=== PATIENT | male | born 1990 | race African-American/Black ===

== ENCOUNTER 2022-05-08 12:06 | Emergency (ER) | payer OTHER ==
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
--- NOTE | 2022-05-08 12:19 | EDPHYS ---
Physician Documentation [facility] Name: Bebo Morales Age: 31 yrs Sex: Male : 1990 Arrival Date: 05/08/2022 Time: 12:12 Bed Waiting Private MD: ED Physician Trent Sharpe HPI: 05/08 12:15 This 31 yrs old Black Male presents to ER via Ambulatory with complaints of Eye jh7 Swelling, Eye Pain. 12:15 The patient is experiencing pain, to the left eye, caused by an unknown mechanism. jh7 Onset: The symptoms/episode began/occurred 5 day(s) ago. Associated signs and symptoms: Pertinent negatives: fever, Visual changes, eye pain. Patient complains of redness and swelling to the left lower eyelid for the past 5 days. He denies any visual changes or drainage from the eye. States the area is tender to palpation.. Historical: - Allergies: 12:23 No Known Allergies; vg1 - Home Meds: 12:23 None [Active]; vg1 - PMHx: 12:23 None; vg1 - PSHx: 12:23 None; vg1 - Immunization history:: Client reports having NOT received the Covid vaccine. - Social history:: Smoking status: Patient denies any tobacco usage or history of. ROS: 12:15 Constitutional: Negative for fever, chills, and weight loss, ENT: Negative for injury, jh7 pain, and discharge, Cardiovascular: Negative for chest pain, palpitations, and edema, Respiratory: Negative for shortness of breath, cough, wheezing, and pleuritic chest pain, Skin: Negative for injury, rash, and discoloration, Neuro: Negative for headache, weakness, numbness, tingling, and seizure. 12:15 Eyes: Positive for redness, swelling, Negative for blurry vision, discharge, tearing, vision loss, visual disturbance. 12:15 All other systems are negative. Exam: 12:15 Constitutional: This is a well developed, well nourished patient who is awake, alert, jh7 and in no acute distress. Head/Face: Normocephalic, atraumatic. ENT: Nares patent. No nasal discharge, no septal abnormalities noted. Oropharynx with no redness, swelling, or masses, exudates, or evidence of obstruction, uvula midline. Mucous membranes moist. Cardiovascular: Regular rate and rhythm with a normal S1 and S2. No gallops, murmurs, or rubs. Normal PMI, no JVD. No pulse deficits. Respiratory: Lungs have equal breath sounds bilaterally, clear to auscultation and percussion. No rales, rhonchi or wheezes noted. No increased work of breathing, no retractions or nasal flaring. Skin: Warm, dry with normal turgor. Normal color with no rashes, no lesions, and no evidence of cellulitis. Neuro: Awake and alert, GCS 15, oriented to person, place, time, and situation. Normal gait. 12:15 Eyes: Extraocular movements: intact throughout, Conjunctiva: normal, Stye noted on the left lower lid. Vital Signs: 12:18 BP 118 / 65; Pulse 78; Resp 18; Temp 97.8(TE); Pulse Ox 99% on R/A; Weight 131.54 kg; vg1 Height 5 ft. 11 in. (180.34 cm); Pain 0/10; 12:18 Body Mass Index 40.45 (131.54 kg, 180.34 cm) vg1 MDM: 12:13 Patient medically screened. jh7 12:20 Differential diagnosis: Stye. Data reviewed: vital signs, nurses notes. I considered jh7 the following discharge prescriptions or medication management in the emergency department Prescribed erythromycin ointment. Counseling: I had a detailed discussion with the patient and/or guardian regarding: the historical points, exam findings, and any diagnostic results supporting the discharge/admit diagnosis, to return to the emergency department if symptoms worsen or persist or if there are any questions or concerns that arise at home. Special discussion: Advised warm compresses 15 to 20 minutes at a time 3-4 times a day. Informed the patient that this is likely what will help his stye the most, but prescribed erythromycin ointment as well.. Administered Medications: No medications were administered Disposition: 18:08 Co-signature as Attending Physician, Trent Sharpe MD. rn Disposition Summary: 05/08/22 12:19 Discharge Ordered Location: Home [facility] Problem: new jh7 Symptoms: are unchanged jh7 Condition: Stable jh7 Diagnosis - Hordeolum externum left lower eyelid jh7 Followup: 7 - With: Private Physician - When: 2 - 3 days - Reason: Recheck today's complaints Discharge Instructions: - Discharge Summary Sheet jh7 - Michael jh7 Forms: - Medication Reconciliation Form jh7 - Thank You Letter jh7 Prescriptions: - Erythromycin 5 mg/gram (0.5 %) Ophthalmic Ointment - apply 1 centimeter by OPHTHALMIC route 2-3 times daily for 7 days; 1 tube; [facility] Refills: 0, Product Selection Permitted Signatures: Trent Sharpe MD MD rn Brent, MARY Smith RN vg1 Margarita Serra FNP BENEFITS REPRESENTATIVE [facility] Corrections: (The following items were deleted from the chart) 12:23 12:23 Allergies: Aspirin; vg1 vg1
--- NOTE | 2022-05-08 12:25 | ER ---
Nurse's Notes [facility] Name: Bebo Morales Age: 31 yrs Sex: Male : 1990 Arrival Date: 05/08/2022 Time: 12:12 Bed Waiting Private MD: Diagnosis: Hordeolum externum left lower eyelid Presentation: 05/08 12:18 Chief complaint: Patient states: Left eye swelling/pain x 2 days; pt stated "i think vg1 its a stye or maybe its my contacts". Coronavirus screen: Vaccine status: Patient reports being unvaccinated. Client denies travel out of the [place] in the last 14 days. Ebola Screen: Patient negative for fever greater than or equal to 101.5 degrees Fahrenheit, and additional compatible Ebola Virus Disease symptoms. Mechanism of Injury: No Mechanism of Injury. The patient denies any loss of vision. Initial Sepsis Screen: Does the patient meet any 2 criteria? No. Patient's initial sepsis screen is negative. Does the patient have a suspected source of infection? No. Patient's initial sepsis screen is negative. Risk Assessment: Do you want to hurt yourself or someone else? Patient reports no desire to harm self or others. Onset of symptoms was May 06, 2022. 12:18 Method Of Arrival: Ambulatory vg1 12:18 Acuity: KD 4 vg1 Triage Assessment: 12:23 General: Appears in no apparent distress. comfortable, Behavior is calm, cooperative. vg1 Pain: Denies pain. EENT: Eyes Left eye swelling/redness. Historical: - Allergies: 12:23 No Known Allergies; vg1 - Home Meds: 12:23 None [Active]; vg1 - PMHx: 12:23 None; vg1 - PSHx: 12:23 None; vg1 - Immunization history:: Client reports having NOT received the Covid vaccine. - Social history:: Smoking status: Patient denies any tobacco usage or history of. Screenin:24 [facility] ED Fall Risk Assessment (Adult) History of falling in the last 3 months, vg1 including since admission No falls in past 3 months (0 pts) Confusion or Disorientation No (0 pts) Intoxicated or Sedated No (0 pts) Impaired Gait No (0 pts) Mobility Assist Device Used No (0 pt) Altered Elimination No (0 pt) Score/Fall Risk Level 0 - 2 = Low Risk Oriented to surroundings, Maintained a safe environment, Educated pt \\T\\ family on fall prevention, incl call for assistance when getting out of bed. Abuse screen: Denies threats or abuse. Nutritional screening: No deficits noted. Tuberculosis screening: No symptoms or risk factors identified. Vital Signs: 12:18 BP 118 / 65; Pulse 78; Resp 18; Temp 97.8(TE); Pulse Ox 99% on R/A; Weight 131.54 kg; vg1 Height 5 ft. 11 in. (180.34 cm); Pain 0/10; 12:18 Body Mass Index 40.45 (131.54 kg, 180.34 cm) vg1 ED Course: 12:12 Patient arrived in ED. as 12:13 [facility] Ser[facility] 7 12:13 Trent Sharpe MD is Attending Physician. 7 12:23 Triage completed. vg1 12:23 Arm band placed on. vg1 12:24 Patient has correct armband on for positive identification. vg1 12:24 No provider procedures requiring assistance completed. Patient did not have IV access vg1 during this emergency room visit. Administered Medications: No medications were administered Medication: 12:24 VIS not applicable for this client. vg1 Outcome: 12:19 Discharge ordered by . 7 12:24 Discharged to home ambulatory, with family. vg1 12:24 Condition: good 12:24 Discharge instructions given to patient, family, Instructed on discharge instructions, follow up and referral plans. medication usage, Demonstrated understanding of instructions, follow-up care, medications, Prescriptions given X 1. 12:25 Patient left the ED. vg1 Signatures: Savi Lynn Victoria, RN RN vg1 Margarita Serra FNP PERSONNEL PSYCHOLOGIST [facility] Corrections: (The following items were deleted from the chart) 12:23 12:23 Allergies: Aspirin; vg1 vg1
[2022-05-08 12:30] VITALS: BP 118/65; TEMP 97.8; O2SAT 99
== END 2022-05-08 12:25 | disposition home or self-care (01) ==
LOC: ER 12:06
DX: H00.015 Hordeolum externum left lower eyelid (principal)

== ENCOUNTER → 2023-04-13 | Emergency (ER) | payer OTHER ==
[~2023-04-13] MED LIST: NA CHLORIDE 0.9% 1,000 ML ONE; PROPRANOLOL HCL 40 MG TAB ONE
--- OUTSIDE RECORDS SUMMARY | 2023-04-13 14:00 | XMS REPORT | Continuity of Care Document ---
Author Name Unknown Address [address] [facility] [address] [place] [address] [facility] thconnect Address [address] [facility] [address] [place] [address] Care Team Providers Care Assembler Wet Wash Name Role Phone [email or web address] Attending Clinician Unavailable Margarita Lim Attending Clinician Moshe Loaiza CMA Attending Clinician Unavailabl Anuel Stearns Attending Clinician Unavailable Breanna Castaneda Attending Clinician Unavailable Susi Anton MD Attending Clinician Elicia Cadena Attending Clinician Unavailab Rosetta Quinn Attending Clinician Unavailable Ulises Valdez Attending Clinician Breanna Song Attending Clinician UnavailRosetta Machuca Attending Clinician Unavailable Mary Coppola Attending Clinician Unavailable Karl Berger Attending Clinician [phone] Fernanda Edouard Attending Clinician Unavailab Karl Bennett Attending Clinician Unavailable Margarita Lim Unavailable Susi Anton MD Unavailable Karl Rodriguez Unavailable Payers Payer Name Policy Type Policy Number Effective Date Expirati on Date [id number]00 Problems Condition Name Condition Details Condition Category Status Onset Date Resolution Date Last Treatment Date Treating Clinician Comments Source Immune to hepatitis B Condition Active 2 00:00: 00 2021-05-11 08:56:15 Margarita Martínez [facility] Low HDL cholestero l Condition Active 2 00:00: 00 2021-05-11 08:56:15 Margarita Martínez [facility] Acanthosis nigricans Condition Active 08-26 00:00: 00 2021-05-10 15:32:13 Susi Anton [facility] Prediabete s Condition Active 07-08 00:00: 00 2020-07-08 09:55:58 Margarita Martínez [facility] Vitamin D deficiency Condition Active 07-08 00:00: 00 2020-07-08 09:55:58 Margarita Martínez [facility] Seborrheic dermatitis of scalp Condition Active 07-07 00:00: 00 2020-07-07 15:07:49 Margarita Martínez [facility] Prurigo Condition Active 07-07 00:00: 00 2020-07-07 15:07:49 Margarita Martínez [facility] Exercise Counseling Condition Active 07-07 00:00: 00 2020-07-07 15:07:49 Margarita Martínez [facility] Dietary counseling and surveillan ce Condition Active 07-07 00:00: 00 2020-07-07 15:07:49 Margarita Martínez [facility] BMI 39.0-39.9 Condition Active 07-07 00:00: 00 2020-07-07 15:07:49 Margarita Martínez [facility] Obesity Condition Active 07-07 00:00: 00 2020-07-07 15:07:49 Margarita Martínez [facility] Screening for std Condition Active 07-02 00:00: 00 2019-07-04 09:40:02 Karl Berger [facility] History of Past Illness Condition Name Condition Details Condition Category Status Onset Date Resolution Date Last Treatment Date Treating Clinician Comments Source Penile discharge Condition Inactiv e 9-16 00:00: 00 2021-05-10 00:00:00 2021-05-10 15:32:48 Margarita Martínez [facility] High risk heterosexu al behavior Condition Inactiv e 07-02 00:00: 00 2021-05-10 00:00:00 2021-05-10 15:32:48 Margarita Martínez [facility] Penis lesion Condition Inactiv e 07-02 00:00: 00 2021-05-10 00:00:00 2021-05-10 15:32:48 Margarita Martínez [facility] Social History Social Habit Start Date Stop Date Quantity Comments Source if the patient is using/has used a vaping item, Current, Former, Never Used, Not asked 2022-07-31 12:23:49 2022-07-31 12:23:49 No [facility] drug use 2022-07-31 12:23:49 2022-07-31 12:23:49 Never [facility] alcohol use 2022-07-31 12:23:49 2022-07-31 12:23:49 Never [facility] sexual orientation 2022-07-31 12:23:49 2022-07-31 12:23:49 Heterosexual [facility] social history reviewed E&M 2022-07-31 12:23:49 2022-07-31 12:23:49 reviewed today [facility] social history E&M 2022-07-31 12:23:49 2022-07-31 12:23:49 Single. Born in [facility]. city: [place]. state: [place]. Employment status: Yes. 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 Highest education level: some college. Sex at : Male. Sexual orientation: Heterosexual. Gender identity: Male. Gender of partner(s): Identifies as Female. Sexually active: Yes. [facility] albumin, serum 2021-05-10 15:47:00 2021-05-10 15:47:00 4.6 g/dL [facility] is there any chance that you could be ? 2021-05-10 14:43:35 2021-05-10 14:43:35 No [facility] PHQ2 Questionairre Score 2021-05-10 14:43:35 2021-05-10 14:43:35 [facility] passive cigarette smoke exposure 2020-08-26 14:42:31 2020-08-26 14:42:31 No [facility] alcohol use, frequency 2020-08-26 14:42:31 2020-08-26 14:42:31 few times per month [facility] tobacco use (cigarettes, cigar, chew, pipe) 2020-08-26 14:42:31 2020-08-26 14:42:31 Currently [facility] Occupation #1 2019-12-23 12:10:49 2019-12-23 12:10:49 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 [facility] sex at 2019-12-23 12:10:49 2019-12-23 12:10:49 F [facility] time of call 2019-07-09 13:43:54 2019-07-09 13:43:54 07/09/2019 1:44 PM [facility] Smoking Status Start Date Stop Date Source Never smoked tobacco (finding) [facility] Ex-smoker (finding) 2020-08-26 14:42:31 14:42:31 [facility] Occasional tobacco smoker (finding) 2020-07-07 14:15:04 [facility] Medications Ordered Medication Name Filled Medication Name Start Date Stop Date Current Medication? Ordering Clinician Indication Dosage Frequency Signature (SIG) Comments Components Source (KETOCONAZO LE) 2 % SHAM 07-31 00:00: 00 Yes Margarita ROLDAN Shampoo with a small amount to skin as directed [facility] (HYDROXYZIN E HCL) 25 MG TABS 05-10 00:00: 00 Yes Margarita ROLDAN 1 Take 1 tablet by mouth every eight hours as needed for itching, may cause drowsiness [facility] (CETIRIZINE HCL) 10 MG TABS 08-26 00:00: 00 Yes Margarita ROLDAN 1 1xD Take 1 tablet by mouth once a day [facility] (HYDROXYZIN E HCL) 25 MG TABS 07-07 00:00: 00 05-10 00:00 :00 No Susi Anton 1 3xD 1 tablet by mouth every eight hours as needed [facility] Vital Signs Vital Name Observation Time Observation Value Comments S ource Diastolic blood pressure 2022-07-31 12:23:49 77 mm[Hg] [facility] Systolic blood pressure 2022-07-31 12:23:49 138 mm[Hg] [facility] respiratory rate E&M 2022-07-31 12:23:49 14 /min [facility] pulse rate 2022-07-31 12:23:49 79 /min [facility] temperature site 2022-07-31 12:23:49 oral [facility] temperature E&M 2022-07-31 12:23:49 97.5 [degF] [facility] BMI (body mass index) percentile 2022-07-31 12:23:49 n/a [facility] Body Mass Index (Ratio) 2022-07-31 12:23:49 39.47 kg/m2 [facility] weight E&M 2022-07-31 12:23:49 282 [lb_av] [facility] weight in kilograms E&M 2022-07-31 12:23:49 128.18 kg [facility] height in centimeters E&M 2022-07-31 12:23:49 180.34 [facility]&M 2021-05-10 14:43:35 277 [lb_av] [facility] in kilograms E&M 2021-05-10 14:43:35 125.91 kg [facility] Health temperature E&M 2021-05-10 14:43:35 98.1 [degF] [facility] oxygen saturation, oximetry 2021-05-10 14:43:35 96 /min [facility] blood pressure, diastolic 2021-05-10 14:43:35 77 mm[Hg] [facility] blood pressure, systolic 2021-05-10 14:43:35 135 mm[Hg] [facility] pulse rate 2021-05-10 14:43:35 83 /min [facility] 2021-05-10 14:43:35 [facility] height in centimeters E&M 2021-05-10 14:43:35 180.34 cm [facility] BMI (body mass index) percentile 2021-05-10 14:43:35 n/a [facility] Body Mass Index (Ratio) 2021-05-10 14:43:35 38.77 kg/m2 [facility] temperature site 2021-05-10 14:43:35 [facility] temperature E&M 2020-08-26 14:42:31 98.2 [degF] [facility] blood pressure, diastolic 2020-08-26 14:42:31 73 mm[Hg] [facility] blood pressure, systolic 2020-08-26 14:42:31 120 mm[Hg] [facility] pulse rate 2020-08-26 14:42:31 83 /min [facility] respiratory rate E&M 2020-08-26 14:42:31 20 /min [facility] oxygen saturation, oximetry 2020-08-26 14:42:31 97 /min [facility] temperature site 2020-08-26 14:42:31 [facility] weight E&M 2020-08-26 14:42:31 285 [lb_av] [facility] weight in kilograms E&M 2020-08-26 14:42:31 129.55 kg [facility] height in centimeters E&M 2020-08-26 14:42:31 180.34 cm [facility] temperature site 2020-08-26 14:42:31 [facility] BMI (body mass index) percentile 2020-08-26 14:42:31 n/a [facility] Body Mass Index (Ratio) 2020-08-26 14:42:31 39.89 kg/m2 [facility] BMI (body mass index) percentile 2020-07-07 14:15:04 n/a [facility] Body Mass Index (Ratio) 2020-07-07 14:15:04 39.51 kg/m2 [facility] temperature site 2020-07-07 14:15:04 oral [facility] oxygen saturation, oximetry 2020-07-07 14:15:04 97 /min [facility] blood pressure, diastolic 2020-07-07 14:15:04 78 mm[Hg] [facility] blood pressure, systolic 2020-07-07 14:15:04 139 mm[Hg] [facility] pulse rate 2020-07-07 14:15:04 74 /min [facility] E&M 2020-07-07 14:15:04 98.3 [degF] [facility] weight E&M 2020-07-07 14:15:04 282.25 [lb_av] [facility] weight in kilograms E&M 2020-07-07 14:15:04 128.30 kg [facility] site 2020-07-07 14:15:04 oral [facility] height in centimeters E&M 2020-07-07 14:15:04 180.34 cm [facility] oxygen saturation, oximetry 2019-12-23 12:10:49 97 /min [facility] blood pressure, diastolic 2019-12-23 12:10:49 56 mm[Hg] [facility] blood pressure, systolic 2019-12-23 12:10:49 114 mm[Hg] [facility] pulse rate 2019-12-23 12:10:49 85 /min [facility] temperature E&M 2019-12-23 12:10:49 97.9 [degF] [facility] weight E&M 2019-12-23 12:10:49 279.50 [lb_av] L [facility] weight in kilograms E&M 2019-12-23 12:10:49 127.05 [facility] height in centimeters E&M 2019-12-23 12:10:49 180.34 [facility] BMI (body mass index) percentile 2019-12-23 12:10:49 n/a [email or web address] Body Mass Index (Ratio) 2019-12-23 12:10:49 39.12 kg/m2 [facility] temperature site 2019-12-23 12:10:49 [facility] site 2019-12-23 12:10:49 [facility] saturation, oximetry 2019-07-03 14:41:47 97 /min [facility] blood pressure, diastolic 2019-07-03 14:41:47 79 mm[Hg] [facility] blood pressure, systolic 2019-07-03 14:41:47 133 mm[Hg] [facility] pulse rate 2019-07-03 14:41:47 77 /min [facility] temperature E&M 2019-07-03 14:41:47 98.7 [degF] [facility] weight E&M 2019-07-03 14:41:47 269 [lb_av] [facility] weight in kilograms E&M 2019-07-03 14:41:47 122.27 kg [facility] height in centimeters E&M 2019-07-03 14:41:47 180.34 cm [facility] Body Mass Index (Ratio) 2019-07-03 14:41:47 37.65 kg/m2 [facility] BMI (body mass index) percentile 2019-07-03 14:41:47 n/a [facility] Procedures Procedure Date / Time Performed Performing Clinician Source Most recent diastolic blood pressure less than 80 mm Hg 2022-07-31 12:47:13 [facility] Most recent systolic blood pressure 130 - 139 mm Hg 2022-07-31 12:47:13 [facility] Most recent HbA1c is less than 7.0% 2022-07-31 12:47:13 [facility] Most recent diastolic blood pressure less than 80 mm Hg 2021-05-10 15:29:23 [facility] Most recent systolic blood pressure 130 - 139 mm Hg 2021-05-10 15:29:23 Margarita Martínez [facility] Most recent HbA1c is less than 7.0% 2021-05-10 15:29:23 Margarita Martínez [facility] Most recent diastolic blood pressure less than 80 mm Hg (HTN, CKD, CAD) (DM) 2020-08-26 15:35:[facility] Most recent systolic blood pressure less than 130 mm Hg (DM), (HTN, CKD, CAD) 2020-08-26 15:35:49 [place] [facility] [id number] Most recent hemoglobin A1c (HbA1c) level less than 7.0% (DM) 2020-08-26 15:35:49 [place] [facility] Venipuncture 2020-07-07 15:04:22 Margarita Martínez [facility] IM or SQ Injection 2019-12-23 17:04:31 Adenike Escalante ea [facility] Injection, ceftriaxone sodium, per 250 mg 2019-12-23 17:04:31 Ulises Escalante [facility] Azithromycin oral 2019-12-23 17:02:34 Dain Escalante [facility] Injection, ceftriaxone sodium, per 250 mg 2019-07-03 15:04:47 Karl Berger [facility] Azithromycin oral 2019-07-03 15:04:47 Ab [facility] Encounters Start Date/Time End Date/Time Encounter Type Admission Type Attending [facility] Care Facility Care Department Encounter ID Source 2022-09-14 09:03:04 Outpatient felix [facility] [id number] [facility] 2022-08-01 05:03:44 Outpatient felix [facility] [id number] [facility] 2022-11-28 10:35:02 2022-11-28 10:35:02 Outpatient [facility] [id number] Seth Armijo 2022-07-31 00:00:00 2022-08-01 00:00:00 In-person encounter Margarita Martínez Armando [facility] Adult [facility] [id number] [facility] 2022-07-31 00:00:00 2022-08-01 00:00:00 In-person encounter Margarita Martínez Armando [facility] Adult Medicine Encounter/ [id number] [facility] 2021-05-10 00:00:00 2021-05-11 00:00:00 Office Visit Margarita Martínez Irza Vargas, Nancy [facility] Encounter/ [id number] [facility] 2021-05-10 00:00:00 2021-05-11 00:00:00 In-person encounter Margarita Martínez Irza Vargas, Nancy [facility] Adult [facility] [id number] [facility] 2020-08-26 00:00:00 2020-08-26 00:00:00 In-person encounter Susi Anton Julissa [facility] [id number] [facility] 2020-08-26 00:00:00 2020-08-26 00:00:00 Office Visit Susi Anton Julissa [facility] Encounter/ [id number] [facility] 2020-07-07 00:00:00 2020-07-07 00:00:00 Office Visit Margarita Martínez Diana G [facility] Encounter/ [id number] [facility] 2020-07-07 00:00:00 2020-07-07 00:00:00 In-person encounter Margarita Martínez Diana G [facility] Adult [facility] [id number] [facility] 2019-12-23 00:00:00 2020-01-11 00:00:00 In-person encounter Ulises Escalante Diana G [facility] Adult [facility] [id number] [facility] 2019-12-30 00:00:00 2019-12-30 00:00:00 Office Visit Ulises Escalante Breanna [facility] Encounter/ [id number] [facility] 2019-12-23 00:00:00 2019-12-23 00:00:00 Office Visit Ulises Escalante [facility] Encounter/ [id number] [facility] 2019-12-23 00:00:00 2019-12-23 00:00:00 Office Visit Ulises Escalante Rosetta Josseline [facility] Encounter/ [id number] [facility] 2019-07-10 00:00:00 2019-07-10 00:00:00 Office Visit Mary Coppola [facility] Encounter/ [id number] [facility] 2019-07-09 00:00:00 2019-07-09 00:00:00 Office Visit Karl Berger [facility] Encounter/ [id number] [facility] 2019-07-09 00:00:00 2019-07-09 00:00:00 Office Visit Mary Coppola, Karl Wiley [facility] Encounter/ [id number] [facility] 2019-07-06 00:00:00 2019-07-06 00:00:00 Office Visit Karl Berger Sonne [facility] Encounter/ [id number] [facility] 2019-07-06 00:00:00 2019-07-06 00:00:00 Office Visit Karl Berger [facility] Encounter/ [id number] [facility] 2019-07-04 00:00:00 2019-07-04 00:00:00 Office Visit Karl Berger [facility] Encounter/ [id number] [facility] 2019-07-03 00:00:00 2019-07-04 00:00:00 In-person encounter Karl Berger Sonne [facility] Medicine [id number] [facility] 2019-07-03 00:00:00 2019-07-03 00:00:00 Office Visit Karl Berger Sonne [facility] Encounter/ [id number] [facility] 2019-07-03 00:00:00 2019-07-03 00:00:00 Office Visit Karl Berger [facility] Encounter/ [id number] [facility] 2019-07-03 00:00:00 2019-07-03 00:00:00 Office Visit Karl Berger [facility] Encounter/ [id number] [facility] 2019-07-03 00:00:00 2019-07-03 00:00:00 Office Visit Karl Berger [facility] Encounter/ [id number] [facility] 2019-07-03 00:00:00 2019-07-03 00:00:00 Office Visit Karl Berger Sonne [facility] Encounter/ [id number] [facility] Results Test Description Test Time Test Comments Results Result Co mments Source [facility] hormone, [id number] 15:47:00* Test Item Value Reference Range Interpretation Comme nts thyroid stimulating hormone, serum (test code = 3016-3) 0.718 u[IU]/mL 0.450-4.500 [facility] A1C, blood, as % of total [id number] 15:47:00* Test Item Value Reference Range Interpretation Comme nts hemoglobin A1C, blood, as % of total hemoglobin (test code = 4548-4) 5.9 % 4.8-5.6 H [facility] cholesterol, [id number] 15:47:00* Test Item Value Reference Range Interpretation Comme nts LDL cholesterol, serum (test code = 2089-1) 51 mg/dL 0-99 [facility] low density [id number] 15:47:00* Test Item Value Reference Range Interpretation Comme nts very low density lipoprotein s (test code = 2091-7) 15 mg/dL 5-40 [facility], [id number] 15:47:00* Test Item Value Reference Range Interpretation Comme nts HDL cholesterol, serum (test code = 2085-9) 38 mg/dL >39 L [facility]rig[facility], serum, [id number] 15:47:00* Test Item Value Reference Range Interpretation Comme nts triglyceride, serum, fasting (test code = 2571-8) 70 mg/dL 0-149 [facility]cholesterol, [id number] 15:47:00* Test Item Value Reference Range Interpretation Comme nts cholesterol, serum (test cod e = 2093-3) 104 mg/dL 100-199 [facility] Cent[facility]anine aminotransferase (SGPT), [id number] 15:47:00 * Test Item Value Reference Range Interpretation Comme nts alanine aminotransferase (SG PT), serum (test code = 1742-6) 34 1/L 0-44 [facility] Centeraspartate aminotransferase (SGOT), [id number] 15:47:00* Test Item Value Reference Range Interpretation Comme nts aspartate aminotransferase ( SGOT), serum (test code = 1920-8) 23 1/L 0-40 [facility] Centeralkaline phosphatase, [id number] 15:47:00* Test Item Value Reference Range Interpretation Comme nts alkaline phosphatase, serum (test code = 1783-0) 51 1/L 44-121 [facility] Centerbilirubin, serum, [id number] 15:47:00* Test Item Value Reference Range Interpretation Comme nts bilirubin, serum, total (haylee t code = 1975-2) 0.9 mg/dL 0.0-1.2 [facility] Healthalbumin/globulin ratio, [id number] 15:47:00* Test Item Value Reference Range Interpretation Comme [facility] albumin/globulin ratio, serum (test code = 1759-0) 2.0 (unknown unit) 1.2-2.2 [facility] Healthglobulin, [id number] 15:47:00* Test Item Value Reference Range Interpretation Comme nts globulin, serum (test code = 2336-6) 2.3 (unknown unit) 1.5-4.5 [facility] Healthalbumin, [id number] 15:47:00* Test Item Value Reference Range Interpretation Comme nts albumin, serum (test code = 1751-7) 4.6 g/dL 4.1-5.2 [facility] Healthprotein, total, [id number] 15:47:00* Test Item Value Reference Range Interpretation Comme nts protein, total, serum (test code = 2885-2) 6.9 g/dL 6.0-8.5 [facility] Healthcalcium, [id number] 15:47:00* Test Item Value Reference Range Interpretation Comme nts calcium, serum (test code = 2000-8) 9.2 mg/dL 8.7-10.2 [facility] Centercarbon dioxide, venous [id number] 15:47:00* Test Item Value Reference Range Interpretation Comme nts carbon dioxide, venous blood (test code = 2027-1) 27 mmol/L 20-29 [facility] Healthchloride, [id number] 15:47:00* Test Item Value Reference Range Interpretation Comme nts chloride, serum (test code = 2075-0) 101 mmol/L 96-106 [facility] Centerpotassium, [id number] 15:47:00* Test Item Value Reference Range Interpretation Comme nts potassium, serum (test code = 2823-3) 4.1 mmol/L 3.5-5.2 [facility] Centersodium, [id number] 15:47:00* Test Item Value Reference Range Interpretation Comme nts sodium, serum (test code = 2951-2) 143 mmol/L 134-144 [facility] Centerurea nitrogen/creatinine ratio, [id number] 15:47:00 * Test Item Value Reference Range Interpretation Comme nts urea nitrogen/creatinine ratio, serum (test code = 3097-3) 11 (unknown unit) 9-20 [facility] HealtheGFR if [id number] 15:47:00* Test Item Value Reference Range Interpretation Comme nts eGFR if (test code = 39012-0) 109 mL/min/{1.73 m2} >59 [facility] CenterEstimated Glomerular Filtration Rate (calc)2021-05-10 15:47:00* Test Item Value Reference Range Interpretation Comme nts Estimated Glomerular Filtration Rate (calc) (test code = 08465-5) 94 mL/min/{1.73 m2} >59 [facility] Centercreatinine, [id number] 15:47:00* Test Item Value Reference Range Interpretation Comme nts creatinine, serum (test code = 2160-0) 1.06 mg/dL 0.76-1.27 [facility] Centerurea nitrogen, [id number] 15:47:00* Test Item Value Reference Range Interpretation Comme nts urea nitrogen, blood (test c ode = 3094-0) 12 mg/dL 6-20 [facility] Centerblood glucose, [id number] 15:47:00* Test Item Value Reference Range Interpretation Comme nts blood glucose, random (test code = 2339-0) 89 mg/dL 65-99 [facility] Centerimmature granulocytes, percentage of total cells, blood 2021-05-10 15:47:00* Test Item Value Reference Range Interpretation Comme nts immature granulocytes, perce ntage of total cells, blood (test code = 45805-0) 0 % [facility] Centerbasophil count, [id number] 15:47:00* Test Item Value Reference Range Interpretation Comme nts basophil count, absolute (te st code = 13199-2) 0.0 x10E3/uL 0.0-0.2 [facility] CenterEosinophil Absolute Czauq2758-21-26 15:47:00* Test Item Value Reference Range Interpretation Comme nts Eosinophil Absolute Count (t est code = 56808-1) 0.1 X10E3/UL 0.0-0.4 [facility] Centermonocyte count, blood, nwldeaqbm5286-01-10 15:47:00* Test Item Value Reference Range Interpretation Comme nts monocyte count, blood, autom ated (test code = 742-7) 0.7 X10E3/UL 0.1-0.9 [facility] Centerlymphocyte count, blood, imwtnrlsi2766-83-45 15:47:00* Test Item Value Reference Range Interpretation Comme nts lymphocyte count, blood, automated (test code = 731-0) 1.9 X10E3/UL 0.7-3.1 [facility] CenterAbsolute Kvlkuomqlku4329-61-52 15:47:00* Test Item Value Reference Range Interpretation Comme nts Absolute Neutrophils (test c ode = 06027-0) 4.6 X10E3/UL 1.4-7.0 [facility] Centerbasophils as percent of blood bpllhliato3503-29-17 15:47:00* Test Item Value Reference Range Interpretation Comme nts basophils as percent of bloo d leukocytes (test code = 707-0) 0 % [facility] Centereosinophils as percent of blood btkvpeebqs5771-97-26 15:47:00* Test Item Value Reference Range Interpretation Comme nts eosinophils as percent of bl ood leukocytes (test code = 713-8) 1 % [facility] Healthmonocytes as percent of blood yopvbqzmqb9523-84-31 15:47:00* Test Item Value Reference Range Interpretation Comme nts monocytes as percent of bloo d leukocytes (test code = 5905-5) 9 % [facility] Centerlymphocytes as percent of blood bhvctqmuuz5453-15-41 15:47:00* Test Item Value Reference Range Interpretation Comme nts lymphocytes as percent of bl ood leukocytes (test code = 736-9) 26 % [facility] Centerneutrophils as percent of blood sbbdeobgda6258-93-97 15:47:00* Test Item Value Reference Range Interpretation Comme nts neutrophils as percent of bl ood leukocytes (test code = 770-8) 64 % [facility] Centerplatelet [id number] 15:47:00* Test Item Value Reference Range Interpretation Comme nts platelet count (test code = 777-3) 246 X10E3/UL 150-450 [facility] Centerred blood cell distribution [id number] 15:47:00* Test Item Value Reference Range Interpretation Comme [facility] red blood cell distribution width (test code = 788-0) 13.6 % 11.6-15.4 [facility] hemoglobin concentration, [id number] 15:47:00* Test Item Value Reference Range Interpretation Comme nts mean corpuscular hemoglobin concentration, RBC (test code = 786-4) 32.9 G/DL 31.5-35.[address] [facility] corpuscular hemoglobin, [id number] 15:47:00* Test Item Value Reference Range Interpretation Comme nts mean corpuscular hemoglobin, RBC (test code = 785-6) 28.1 pg 26.6-33.0 [facility] Centermean corpuscular volume, [id number] 15:47:00* Test Item Value Reference Range Interpretation Comme nts mean corpuscular volume, RBC (test code = 787-2) 86 fL 79-97 [facility] Centerhematocrit, oxptr9238-04-53 15:47:00* Test Item Value Reference Range Interpretation Comme nts hematocrit, blood (test code = 4544-3) 46.2 % 37.5-51. 0 [facility] Centerhemoglobin, hvmuj8220-77-89 15:47:00* Test Item Value Reference Range Interpretation Comme nts hemoglobin, blood (test code = 718-7) 15.2 g/dL 13.0-17.7 [facility] Centererythrocyte (RBC) lszjz5022-58-46 15:47:00* Test Item Value Reference Range Interpretation Comme nts erythrocyte (RBC) count (haylee t code = 789-8) 5.40 X10E6/UL 4.14-5.80 [facility] Centerleukocyte count, [id number] 15:47:00* Test Item Value Reference Range Interpretation Comme nts leukocyte count, blood (test code = 6690-2) 7.4 X10E3/UL 3.4-10.8 [facility] Centerhepatitis C antibody, [id number] 15:47:00* Test Item Value Reference Range Interpretation Comme nts hepatitis C antibody, serum (test code = 5199-5) <0.1 0.0-0.9 [facility] Centerhepatitis B surface [id number] 15:47:00* Test Item Value Reference Range Interpretation Comme nts hepatitis B surface antibody (test code = 78) Reactive [facility] Centerhepatitis B core antibody, [id number] 15:47:00* Test Item Value Reference Range Interpretation Comme nts hepatitis B core antibody, t otal (test code = 77) Negative Negative [facility] Centerhepatitis B surface [id number] 15:47:00* Test Item Value Reference Range Interpretation Comme nts hepatitis B surface antigen (test code = 79) Negative Negative [facility] Healthhepatitis B surface [id number] 15:47:00* Test Item Value Reference Range Interpretation Comme nts hepatitis B surface antibody (test code = 92763-0) Reactive [facility] Centerhepatitis B core antibody, bakqy8457-08-75 15:47:00* Test Item Value Reference Range Interpretation Comme nts hepatitis B core antibody, t otal (test code = 96801-9) Negative Negative [facility] Centerhepatitis B surface [id number] 15:47:00* Test Item Value Reference Range Interpretation Comme nts hepatitis B surface antigen (test code = 73103-0) Negative Negative [facility] Centerhepatitis C antibody, [id number] 15:47:00* Test Item Value Reference Range Interpretation Comme nts hepatitis C antibody, serum (test code = 11308-2) <0.1 0.0-0.9 [facility] Centervitamin D 25-hydroxy, zriei7809-69-84 15:10:00* Test Item Value Reference Range Interpretation Comme nts vitamin D 25-hydroxy, serum (test code = 62084-6) 14.3 ng/mL 30.0-100.0 L [facility] Centerhemoglobin, eymlk9140-30-77 15:09:00* Test Item Value Reference Range Interpretation Comme nts hemoglobin, blood (test code = 718-7) 16.0 g/dL 13.0-17.7 [facility] Centererythrocyte (RBC) kvcai8572-66-86 15:09:00* Test Item Value Reference Range Interpretation Comme nts erythrocyte (RBC) count (haylee t code = 789-8) 5.56 X10E6/UL 4.14-5.80 [facility] Centerleukocyte count, eodtr0259-30-07 15:09:00* Test Item Value Reference Range Interpretation Comme nts leukocyte count, blood (test code = 6690-2) 10.3 X10E3/UL 3.4-10.8 [facility] Centerhepatitis B surface [id number] 15:09:00* Test Item Value Reference Range Interpretation Comme nts hepatitis B surface antigen (test code = 31626-3) Negative Negative [facility] CenterHIV-CMIA (Chemiluminescent Microparticle Immuno Assay) 2020-07-07 15:09:00* Test Item Value Reference Range Interpretation Comme nts HIV-CMIA (Chemiluminescent Microparticle Immuno Assay) (test code = 54445-9) Non Reactive Non Reactive [facility] Centerhepatitis C antibody, [id number] 15:09:00* Test Item Value Reference Range Interpretation Comme nts hepatitis C antibody, serum (test code = 10370-7) <0.1 0.0-0.9 [facility] Centerhepatitis B surface [id number] 15:09:00* Test Item Value Reference Range Interpretation Comme nts hepatitis B surface antigen (test code = 79) Negative Negative [facility] Centerhepatitis C antibody, [id number] 15:09:00* Test Item Value Reference Range Interpretation Comme nts hepatitis C antibody, serum (test code = 5199-5) <0.1 0.0-0.9 [facility] CenterHIV-CMIA (Chemiluminescent Microparticle Immuno Assay) 2020-07-07 15:09:00* Test Item Value Reference Range Interpretation Comme nts HIV-CMIA (Chemiluminescent Microparticle Immuno Assay) (test code = 526327) Non Reactive Non Reactive [facility] Centerrapid plasma reagin antibody, kczhz1177-06-24 15:09:00* Test Item Value Reference Range Interpretation Comme nts rapid plasma reagin antibody , serum (test code = 5291-0) Non Reactive Non Reactive [facility] Centerthyroid stimulating hormone, [id number] 15:09:00* Test Item Value Reference Range Interpretation Comme nts thyroid stimulating hormone, serum (test code = 3016-3) 2.340 u[IU]/mL 0.450-4.500 [facility] Centerhemoglobin A1C, blood, as % of total acxsfctbfv8911-63-23 15:09:00* Test Item Value Reference Range Interpretation Comme nts hemoglobin A1C, blood, as % of total hemoglobin (test code = 4548-4) 6.0 % 4.8-5.6 H [facility] CenterLDL cholesterol, [id number] 15:09:00* Test Item Value Reference Range Interpretation Comme nts LDL cholesterol, serum (test code = 2089-1) 47 mg/dL 0-99 [facility] low density rswikoarzuqy8160-69-50 15:09:00* Test Item Value Reference Range Interpretation Comme nts very low density lipoprotein s (test code = 2091-7) 16 mg/dL 5-40 [facility] CenterHDL cholesterol, [id number] 15:09:00* Test Item Value Reference Range Interpretation Comme nts HDL cholesterol, serum (test code = 2085-9) 42 mg/dL >39 [facility] Centertriglyceride, serum, xlfqdzr9659-42-46 15:09:00* Test Item Value Reference Range Interpretation Comme nts triglyceride, serum, fasting (test code = 2571-8) 80 mg/dL 0-149 [facility] Centercholesterol, syhbz8322-80-79 15:09:00* Test Item Value Reference Range Interpretation Comme nts cholesterol, serum (test cod e = 2093-3) 105 mg/dL 100-199 [facility] Centeralanine aminotransferase (SGPT), [id number] 15:09:00 * Test Item Value Reference Range Interpretation Comme nts alanine aminotransferase (SG PT), serum (test code = 1742-6) 28 1/L 0-44 [facility] Centeraspartate aminotransferase (SGOT), [id number] 15:09:00* Test Item Value Reference Range Interpretation Comme nts aspartate aminotransferase ( SGOT), serum (test code = 1920-8) 28 1/L 0-40 [facility] Centeralkaline phosphatase, [id number] 15:09:00* Test Item Value Reference Range Interpretation Comme nts alkaline phosphatase, serum (test code = 1783-0) 49 1/L 39-117 [facility] Centerbilirubin, serum, [id number] 15:09:00* Test Item Value Reference Range Interpretation Comme nts bilirubin, serum, total (haylee t code = 1975-2) 0.7 mg/dL 0.0-1.2 [facility] Centeralbumin/globulin ratio, [id number] 15:09:00* Test Item Value Reference Range Interpretation Comme nts albumin/globulin ratio, serum (test code = 1759-0) 1.9 (unknown unit) 1.2-2.2 [facility] Centerglobulin, [id number] 15:09:00* Test Item Value Reference Range Interpretation Comme nts globulin, serum (test code = 2336-6) 2.6 (unknown unit) 1.5-4.5 [facility] Healthalbumin, [id number] 15:09:00* Test Item Value Reference Range Interpretation Comme nts albumin, serum (test code = 1751-7) 4.9 g/dL 4.1-5.2 [facility] Healthprotein, total, [id number] 15:09:00* Test Item Value Reference Range Interpretation Comme nts protein, total, serum (test code = 2885-2) 7.5 g/dL 6.0-8.5 [facility] Healthcalcium, [id number] 15:09:00* Test Item Value Reference Range Interpretation Comme nts calcium, serum (test code = 2000-8) 10.0 mg/dL 8.7-10.2 [facility] Centercarbon dioxide, venous wvurq5467-62-11 15:09:00* Test Item Value Reference Range Interpretation Comme nts carbon dioxide, venous blood (test code = 2027-1) 29 mmol/L 20-29 [facility] Healthchloride, [id number] 15:09:00* Test Item Value Reference Range Interpretation Comme nts chloride, serum (test code = 2075-0) 100 mmol/L 96-106 [facility] Healthpotassium, [id number] 15:09:00* Test Item Value Reference Range Interpretation Comme nts potassium, serum (test code = 2823-3) 4.4 mmol/L 3.5-5.2 [facility] Healthsodium, [id number] 15:09:00* Test Item Value Reference Range Interpretation Comme nts sodium, serum (test code = 2951-2) 143 mmol/L 134-144 [facility] Healthurea nitrogen/creatinine ratio, [id number] 15:09:00 * Test Item Value Reference Range Interpretation Comme nts urea nitrogen/creatinine ratio, serum (test code = 3097-3) 13 (unknown unit) 9-20 [facility] HealtheGFR if Scyuadbz1906-75-13 15:09:00* Test Item Value Reference Range Interpretation Comme nts eGFR if (test code = 49639-7) 112 mL/min/{1.73 m2} >59 [facility] CenterEstimated Glomerular Filtration Rate (calc)2020-07-07 15:09:00* Test Item Value Reference Range Interpretation Comme nts Estimated Glomerular Filtration Rate (calc) (test code = 91885-0) 97 mL/min/{1.73 m2} >59 [facility] Centercreatinine, [id number] 15:09:00* Test Item Value Reference Range Interpretation Comme nts creatinine, serum (test code = 2160-0) 1.04 mg/dL 0.76-1.27 [facility] Centerurea nitrogen, [id number] 15:09:00* Test Item Value Reference Range Interpretation Comme nts urea nitrogen, blood (test c ode = 3094-0) 13 mg/dL 6-20 [facility] Centerblood glucose, [id number] 15:09:00* Test Item Value Reference Range Interpretation Comme nts blood glucose, random (test code = 2339-0) 97 mg/dL 65-99 [facility] Centerimmature granulocytes, percentage of total cells, blood 2020-07-07 15:09:00* Test Item Value Reference Range Interpretation Comme nts immature granulocytes, perce ntage of total cells, blood (test code = 84545-8) 0 % [facility] Centerbasophil count, xwajfjig6770-89-27 15:09:00* Test Item Value Reference Range Interpretation Comme nts basophil count, absolute (te st code = 54851-9) 0.0 x10E3/uL 0.0-0.2 [facility] CenterEosinophil Absolute Hdflh9732-92-39 15:09:00* Test Item Value Reference Range Interpretation Comme nts Eosinophil Absolute Count (t est code = 12547-0) 0.1 X10E3/UL 0.0-0.4 [facility] Centermonocyte count, blood, [id number] 15:09:00* Test Item Value Reference Range Interpretation Comme nts monocyte count, blood, autom ated (test code = 742-7) 1.1 X10E3/UL 0.1-0.9 H [facility] Centerlymphocyte count, blood, cdbtmwwvb0629-59-52 15:09:00* Test Item Value Reference Range Interpretation Comme nts lymphocyte count, blood, automated (test code = 731-0) 2.5 X10E3/UL 0.7-3.1 [facility] CenterAbsolute Oojqlruqxoc7701-23-22 15:09:00* Test Item Value Reference Range Interpretation Comme nts Absolute Neutrophils (test c ode = 65489-4) 6.6 X10E3/UL 1.4-7.0 [facility] Centerbasophils as percent of blood lbwjqrmzjt9629-98-27 15:09:00* Test Item Value Reference Range Interpretation Comme nts basophils as percent of bloo d leukocytes (test code = 707-0) 0 % [facility] Centereosinophils as percent of blood eapaunqsha0606-89-06 15:09:00* Test Item Value Reference Range Interpretation Comme nts eosinophils as percent of bl ood leukocytes (test code = 713-8) 1 % [facility] Centermonocytes as percent of blood yfkzlbaxro8486-22-28 15:09:00* Test Item Value Reference Range Interpretation Comme nts monocytes as percent of bloo d leukocytes (test code = 5905-5) 10 % [facility] Centerlymphocytes as percent of blood hfuvmnydsh0876-49-15 15:09:00* Test Item Value Reference Range Interpretation Comme nts lymphocytes as percent of bl ood leukocytes (test code = 736-9) 24 % [facility] Centerneutrophils as percent of blood dglvcosxby4849-40-81 15:09:00* Test Item Value Reference Range Interpretation Comme nts neutrophils as percent of bl ood leukocytes (test code = 770-8) 65 % [facility] Centerplatelet lboee0642-20-55 15:09:00* Test Item Value Reference Range Interpretation Comme nts platelet count (test code = 777-3) 235 X10E3/UL 150-450 [facility] Centerred blood cell distribution jqmhh4802-30-86 15:09:00* Test Item Value Reference Range Interpretation Comme [facility] red blood cell distribution width (test code = 788-0) 13.0 % 11.6-15.4 [facility] Centermean corpuscular hemoglobin concentration, [id number] 15:09:00* Test Item Value Reference Range Interpretation Comme nts mean corpuscular hemoglobin concentration, RBC (test code = 786-4) 33.4 G/DL 31.5-35.[address] [facility] corpuscular hemoglobin, [id number] 15:09:00* Test Item Value Reference Range Interpretation Comme nts mean corpuscular hemoglobin, RBC (test code = 785-6) 28.8 pg 26.6-33.[address] [facility] corpuscular volume, [id number] 15:09:00* Test Item Value Reference Range Interpretation Comme nts mean corpuscular volume, RBC (test code = 787-2) 86 fL 79-97 [facility] Centerhematocrit, takjc7828-52-43 15:09:00* Test Item Value Reference Range Interpretation Comme nts hematocrit, blood (test code = 4544-3) 47.9 % 37.5-51. 0 [facility] Centerhepatitis C antibody, [id number] 13:40:00* Test Item Value Reference Range Interpretation Comme nts hepatitis C antibody, serum (test code = 5199-5) <0.1 0.0-0.9 [facility] Centerrapid plasma reagin antibody, [id number] 13:40:00* Test Item Value Reference Range Interpretation Comme nts rapid plasma reagin antibody , serum (test code = 5291-0) Non Reactive Non Reactive [facility] CenterNeisseria gonorrhoeae DNA [id number] 13:40:00* Test Item Value Reference Range Interpretation Comme nts Neisseria gonorrhoeae DNA pr obe (test code = 81469-6) Positive Negative A [facility] Centerchlamydia DNA tfogr2977-91-39 13:40:00* Test Item Value Reference Range Interpretation Comme nts chlamydia DNA probe (test co de = 62923-6) Negative Negative [facility] Centerhepatitis B surface swrqfaw5895-45-18 13:40:00* Test Item Value Reference Range Interpretation Comme nts hepatitis B surface antigen (test code = 10908-1) Negative Negative [facility] CenterHIV-CMIA (Chemiluminescent Microparticle Immuno Assay) 2019-12-23 13:40:00* Test Item Value Reference Range Interpretation Comme nts HIV-CMIA (Chemiluminescent Microparticle Immuno Assay) (test code = 36307-2) Non Reactive Non Reactive [facility] CenterHERPES SIMPLEX VIRUS TYPE 1 AB.IGG (PT; SER; QN; ) 2019-12-23 13:40:00* Test Item Value Reference Range Interpretation Comme nts HERPES SIMPLEX VIRUS TYPE 1 AB.IGG (PT; SER; QN; ) (test code = 7909-5) 45.80 index 0.00-0.90 H [facility] Centerhepatitis B surface dmlcnhz2445-60-38 13:40:00* Test Item Value Reference Range Interpretation Comme nts hepatitis B surface antigen (test code = 79) Negative Negative [facility] CenterHIV-CMIA (Chemiluminescent Microparticle Immuno Assay) 2019-12-23 13:40:00* Test Item Value Reference Range Interpretation Comme nts HIV-CMIA (Chemiluminescent Microparticle Immuno Assay) (test code = 721418) Non Reactive Non Reactive [facility] Centerhepatitis C antibody, nmyeg3889-39-88 13:40:00* Test Item Value Reference Range Interpretation Comme nts hepatitis C antibody, serum (test code = 82263-4) <0.1 0.0-0.9 [facility] CenterHERPES SIMPLEX VIRUS TYPE 1 AB.IGG (PT; SER; QN; ) 2019-12-23 13:40:00* Test Item Value Reference Range Interpretation Comme nts HERPES SIMPLEX VIRUS TYPE 1 AB.IGG (PT; SER; QN; ) (test code = 2432) 45.80 index 0.00-0.90 H [facility] CenterNeisseria gonorrhoeae DNA [id number] 13:40:00* Test Item Value Reference Range Interpretation Comme nts Neisseria gonorrhoeae DNA pr obe (test code = 31748-7) Positive Negative A [facility] CenterNeisseria gonorrhoeae, throat xnywjfq4586-68-40 10:01:00 * Test Item Value Reference Range Interpretation Comme nts Neisseria gonorrhoeae, throa t culture (test code = 696-5) Negative Negative [facility] HealthNeisseria gonorrhoeae, throat [id number] 10:01:00 * Test Item Value Reference Range Interpretation Comme nts Neisseria gonorrhoeae, throa t culture (test code = 3553) Negative Negative [facility] CenterNeisseria gonorrhoeae DNA [id number] 15:53:00* Test Item Value Reference Range Interpretation Comme nts Neisseria gonorrhoeae DNA pr obe (test code = 96835-2) Positive Negative A [facility] Healthchlamydia DNA qsmja8249-50-29 15:53:00* Test Item Value Reference Range Interpretation Comme nts chlamydia DNA probe (test co de = 01823-8) Negative Negative [facility] CenterNeisseria gonorrhoeae DNA lycpd5086-05-38 15:53:00* Test Item Value Reference Range Interpretation Comme nts Neisseria gonorrhoeae DNA pr obe (test code = 06157-6) Positive Negative A [facility] Healthhepatitis C antibody, aekhp1679-55-99 15:48:00* Test Item Value Reference Range Interpretation Comme nts hepatitis C antibody, serum (test code = 5199-5) <0.1 0.0-0.9 [facility] Centerrapid plasma reagin antibody, [id number] 15:48:00* Test Item Value Reference Range Interpretation Comme nts rapid plasma reagin antibody , serum (test code = 5291-0) Non Reactive Non Reactive [facility] ulqsyjw8360-75-81 15:48:00* Test Item Value Reference Range Interpretation Comme nts hepatitis B surface antigen (test code = 15030-4) Negative Negative [facility] CenterHIV-CMIA (Chemiluminescent Microparticle Immuno Assay) 2019-07-03 15:48:00* Test Item Value Reference Range Interpretation Comme nts HIV-CMIA (Chemiluminescent Microparticle Immuno Assay) (test code = 19456-6) Non Reactive Non Reactive [facility] CenterHERPES SIMPLEX VIRUS TYPE 1 AB.IGG (PT; SER; QN; ) 2019-07-03 15:48:00* Test Item Value Reference Range Interpretation Comme nts HERPES SIMPLEX VIRUS TYPE 1 AB.IGG (PT; SER; QN; ) (test code = 7909-5) 50.60 index 0.00-0.90 H [facility] Healthhepatitis C antibody, [id number] 15:48:00* Test Item Value Reference Range Interpretation Comme nts hepatitis C antibody, serum (test code = 81279-0) <0.1 0.0-0.9 [facility] Centerhepatitis B surface pldnkdj3551-27-38 15:48:00* Test Item Value Reference Range Interpretation Comme nts hepatitis B surface antigen (test code = 79) Negative Negative [facility] CenterHIV-CMIA (Chemiluminescent Microparticle Immuno Assay) 2019-07-03 15:48:00* Test Item Value Reference Range Interpretation Comme nts HIV-CMIA (Chemiluminescent Microparticle Immuno Assay) (test code = 968611) Non Reactive Non Reactive [facility] AB.IGG (PT; SER; QN; ) 2019-07-03 15:48:00* Test Item Value Reference Range Interpretation Comme [facility] HERPES SIMPLEX VIRUS TYPE 1 AB.IGG (PT; SER; QN; ) (test code = 2432) 50.60 index 0.00-0.90 H [facility]
[2023-04-13 15:30] LABS: Absolute Lymphocytes (CBC) 1.2 K/uL (0.7-4.9); Hematocrit 42.4 % (39.6-49.0); Lymphocytes % 20.4 % (15.3-44.8); MCV 83.9 fL (80-100); MPV 9.2 fL (7.6-11.3); Platelets 159 thou/uL (152-406); RBC Red Blood Cell Count 5.06 M/uL (4.33-5.43)
[2023-04-13 15:43] LABS: Potassium 3.6 mEq/L (3.5-5.1)
[2023-04-13 15:44] LABS: Albumin 3.8 g/dL (3.4-5.0); Bilirubin Total 0.7 mg/dL (0.2-1.0); Magnesium 1.9 mg/dL (1.6-2.4); Protein, Total 7.9 g/dL (6.4-8.2); Thyroid Stimulating Hormone 1.62 uIU/mL (0.358-3.740)
--- NOTE | 2023-04-13 16:44 | ER ---
Nurse's Notes [facility] Name: Bebo Morales Age: 32 yrs Sex: Male : 1990 Arrival Date: 04/13/2023 Time: 13:42 Bed 5 Private MD: Diagnosis: Acute upper respiratory infection, unspecified;Insomnia, unspecified Presentation: 04/13 14:29 Chief complaint: Sinus congestion, headache, cough, and nausea x 3 days, can't sleep hb due to sinus congestion. Coronavirus screen: At this time, the client does not indicate any symptoms associated with coronavirus-19. Ebola Screen: No symptoms or risks identified at this time. Initial Sepsis Screen: Does the patient meet any 2 criteria? No. Patient's initial sepsis screen is negative. Does the patient have a suspected source of infection? No. Patient's initial sepsis screen is negative. Risk Assessment: Do you want to hurt yourself or someone else? Patient reports no desire to harm self or others. Onset of symptoms was April 10, 2023. 14:29 Method Of Arrival: Ambulatory hb 14:29 Acuity: KD 3 hb Historical: - Allergies: 14:32 No Known Allergies; hb - Home Meds: 14:32 hydroxyzine HCl Oral [Active]; hb - PMHx: 14:32 None; hb - PSHx: 14:32 None; hb - Immunization history:: Client reports having NOT received the Covid vaccine. Flu vaccine is not up to date. - Social history:: Smoking status: Patient denies any tobacco usage or history of. Screenin:18 [facility] ED Fall Risk Assessment (Adult) History of falling in the last 3 months, ph including since admission No falls in past 3 months (0 pts) Score/Fall Risk Level 0 - 2 = Low Risk Oriented to surroundings, Maintained a safe environment, Hourly rounding (assess needs \T\ fall precautionary measures) done, Used ambulatory aids as needed (educated on \T\ assisted with). Abuse screen: Denies threats or abuse. Denies injuries from another. Nutritional screening: No deficits noted. Tuberculosis screening: No symptoms or risk factors identified. Assessment: 15:16 General: Appears in no apparent distress. comfortable, well groomed, Behavior is calm, ph cooperative, appropriate for age. Pain: Complains of pain in body aches. Neuro: Level of Consciousness is awake, alert, obeys commands, Oriented to person, place, time, situation. Cardiovascular: Capillary refill < 3 seconds in bilateral fingers Patient's skin is warm and dry. Respiratory: Airway is patent Respiratory effort is even, unlabored, Respiratory pattern is regular, symmetrical. EENT: Reports nasal congestion. Derm: Skin is pink, warm \T\ dry. Vital Signs: 14:29 BP 141 / 69; Pulse 70; Resp 18; Temp 99(O); Pulse Ox 100% on R/A; Weight 136.08 kg; hb Height 5 ft. 10 in. ; Pain 7/10; 14:40 BP 130 / 64; Pulse 100; Pulse Ox 99% on R/A; ap3 15:16 BP 142 / 86; Pulse 92; Pulse Ox 98% on R/A; ap3 16:57 BP 141 / 65; Pulse 94; Pulse Ox 99% on R/A; ap3 14:29 Body Mass Index 43.05 (136.08 kg, 177.8 cm) hb 14:29 Pain Scale: Adult hb ED Course: 13:50 Patient arrived in ED. mg5 13:55 Harriett Moser FNP-C is [facility]. snw 13:55 Alex Trevino MD is Attending Physician. snw 14:32 Rosa Nunez, MARY is Primary Nurse. hb 14:32 Triage completed. hb 14:33 Arm band placed on. hb 15:14 Inserted saline lock: 22 gauge in right antecubital area, using aseptic technique. ph Blood collected. 15:18 Patient has correct armband on for positive identification. Bed in low position. Call ph light in reach. Side rails up X 1. Pulse ox on. NIBP on. Door closed. Noise minimized. Warm blanket given. 15:19 Agnieszka Darden, RN is Primary Nurse. ph 15:20 TSH Sent. ph 15:20 Magnesium Sent. ph 15:20 CBC with Diff Sent. ph 15:20 CMP Sent. ph 16:57 Provided Education on: discharge instructions. ap3 16:57 No provider procedures requiring assistance completed. IV discontinued, intact, ap3 bleeding controlled, No redness/swelling at site. Pressure dressing applied. Administered Medications: 15:19 Drug: NS 0.9% IV 1000 ml IV at 1 bolus Per protocol; 1000 mL bolus Route: IV; Rate: 1 ph bolus; Site: right antecubital; 16:57 Follow up: IV Status: Completed infusion; IV Intake: 1000ml ap3 16:03 Drug: NS 0.9% IV 1000 ml IV at 1 bolus Per protocol; 1000 mL bolus Route: IV; Rate: 1 ap3 bolus; Site: right antecubital; 16:57 Follow up: IV Status: Order to discontinue infusion; IV Intake: 250ml ap3 16:03 Drug: Propranolol PO 20 mg PO once Route: PO; ap3 16:58 Follow up: Response: No adverse reaction ap3 Medication: 15:18 VIS not applicable for this client. ph Intake: 16:57 IV: 1000ml; Total: 1000ml. ap3 16:57 IV: 250ml; Total: 1250ml. ap3 Outcome: 16:43 Discharge ordered by . snw 16:57 Discharged to home ambulatory, ap3 16:57 Condition: good 16:57 Discharge instructions given to patient, Instructed on discharge instructions, follow up and referral plans. medication usage, Demonstrated understanding of instructions, follow-up care, medications, Prescriptions given X 3, 16:58 Patient left the ED. ap3 Signatures: Harriett Moser, CASH REGISTER OPERATOR-C CASH REGISTER OPERATOR-Csnw Agnieszka Darden RN RN Rosa Nunez RN RN Juliet Connolly RN RN ap3 Sharron Sow mg5 Corrections: (The following items were deleted from the chart) 14:33 14:32 Home Meds: None; hb hb
--- NOTE | 2023-04-13 16:44 | EDPHYS ---
Physician Documentation [facility] Name: Bebo Morales Age: 32 yrs Sex: Male : 1990 Arrival Date: 04/13/2023 Time: 13:42 Bed 5 Private MD: ED Physician Alex Trevino HPI: 04/13 14:27 This 32 yrs old Black Male presents to ER via Unassigned with complaints of Havent snw Slept in 3 Days. 14:27 Onset: The symptoms/episode began/occurred acutely. Associated signs and symptoms: snw Pertinent positives: congestion, nasal discharge. The patient has not experienced similar symptoms in the past, but family has similar symptoms, son. The patient has not recently seen a physician. Son with Flu recently, Mr. Morales has had congestion, bodyaches. Taking benadryl, immune supplement, and MVI. Historical: - Allergies: 14:32 No Known Allergies; hb - Home Meds: 14:32 hydroxyzine HCl Oral [Active]; hb - PMHx: 14:32 None; hb - PSHx: 14:32 None; hb - Immunization history:: Client reports having NOT received the Covid vaccine. Flu vaccine is not up to date. - Social history:: Smoking status: Patient denies any tobacco usage or history of. ROS: 14:30 Eyes: Negative for injury, pain, redness, and discharge, snw 14:30 Neck: Negative for injury, pain, and swelling, Cardiovascular: Negative for chest pain, palpitations, and edema, Respiratory: Negative for shortness of breath, cough, wheezing, and pleuritic chest pain, Abdomen/GI: Negative for abdominal pain, nausea, vomiting, diarrhea, and constipation, Back: Negative for injury and pain, : Negative for injury, bleeding, discharge, and swelling, MS/Extremity: Negative for injury and deformity, Skin: Negative for injury, rash, and discoloration, Neuro: Negative for headache, weakness, numbness, tingling, and seizure, Psych: Negative for depression, anxiety, suicide ideation, homicidal ideation, and hallucinations, 14:30 Constitutional: Positive for body aches, fatigue, malaise, 14:30 ENT: Positive for sinus congestion, Exam: 14:29 Constitutional: This is a well developed, well nourished patient who is awake, alert, snw and in no acute distress. Head/Face: Normocephalic, atraumatic. Eyes: Pupils equal round and reactive to light, extra-ocular motions intact. Lids and lashes normal. Conjunctiva and sclera are non-icteric and not injected. Cornea within normal limits. Periorbital areas with no swelling, redness, or edema. Neck: Trachea midline, no thyromegaly or masses palpated, and no cervical lymphadenopathy. Supple, full range of motion without nuchal rigidity, or vertebral point tenderness. No Meningismus. Chest/axilla: Normal chest wall appearance and motion. Nontender with no deformity. No lesions are appreciated. Cardiovascular: Tachycardic rate and rhythm with a normal S1 and S2. No gallops, murmurs, or rubs. Normal PMI, no JVD. No pulse deficits. Respiratory: Lungs have equal breath sounds bilaterally, clear to auscultation and percussion. No rales, rhonchi or wheezes noted. No increased work of breathing, no retractions or nasal flaring. Abdomen/GI: Soft, non-tender, with normal bowel sounds. No distension or tympany. No guarding or rebound. No evidence of tenderness throughout. Back: No spinal tenderness. No costovertebral tenderness. Full range of motion. Skin: Warm, dry with normal turgor. Normal color with no rashes, no lesions, and no evidence of cellulitis. MS/ Extremity: Pulses equal, no cyanosis. Neurovascular intact. Full, normal range of motion. Neuro: Awake and alert, GCS 15, oriented to person, place, time, and situation. Cranial nerves II-XII grossly intact. Motor strength 5/5 in all extremities. Sensory grossly intact. Cerebellar exam normal. Normal gait. Psych: Awake, alert, with orientation to person, place and time. Behavior, mood, and affect are within normal limits. 14:29 ENT: External ear(s): are unremarkable, Ear canal(s): are normal, Nose: Nasal mucosa: edematous, Mouth: is normal, Posterior pharynx: is normal, Vital Signs: 14:29 BP 141 / 69; Pulse 70; Resp 18; Temp 99(O); Pulse Ox 100% on R/A; Weight 136.08 kg; hb Height 5 ft. 10 in. ; Pain 7/10; 14:40 BP 130 / 64; Pulse 100; Pulse Ox 99% on R/A; ap3 15:16 BP 142 / 86; Pulse 92; Pulse Ox 98% on R/A; ap3 16:57 BP 141 / 65; Pulse 94; Pulse Ox 99% on R/A; ap3 14:29 Body Mass Index 43.05 (136.08 kg, 177.8 cm) hb 14:29 Pain Scale: Adult hb MDM: 14:24 Patient medically screened. snw 14:30 Differential Diagnosis flu, medication reaction, insomnia. Data reviewed: vital signs, snw nurses notes. 04/13 14:31 Order name: CBC with Diff; Complete Time: 15:35 snw 04/13 14:31 Order name: CMP; Complete Time: 15:45 snw 04/13 14:31 Order name: Magnesium; Complete Time: 15:45 snw 04/13 14:31 Order name: TSH; Complete Time: 15:45 snw 04/13 14:31 Order name: Labs collected and sent; Complete Time: 15:20 snw Administered Medications: 15:19 Drug: NS 0.9% IV 1000 ml IV at 1 bolus Per protocol; 1000 mL bolus Route: IV; Rate: 1 ph bolus; Site: right antecubital; 16:57 Follow up: IV Status: Completed infusion; IV Intake: 1000ml ap3 16:03 Drug: NS 0.9% IV 1000 ml IV at 1 bolus Per protocol; 1000 mL bolus Route: IV; Rate: 1 ap3 bolus; Site: right antecubital; 16:57 Follow up: IV Status: Order to discontinue infusion; IV Intake: 250ml ap3 16:03 Drug: Propranolol PO 20 mg PO once Route: PO; ap3 16:58 Follow up: Response: No adverse reaction ap3 Disposition Summary: 04/13/23 16:43 Discharge Ordered Notes: Location: Home snw Condition: Stable snw Diagnosis - Acute upper respiratory infection, unspecified snw - Insomnia, unspecified snw Followup: snw - With: Emergency Department - When: As needed - Reason: Worsening of condition Followup: snw - With: Private Physician - When: 2 - 3 days - Reason: Recheck today's complaints, Continuance of care, Re-evaluation by your physician Discharge Instructions: - Discharge Summary Sheet snw - Insomnia snw - Upper Respiratory Infection, Adult, [id number] snw - Rehydration, Adult snw Forms: - Work release form snw - Medication Reconciliation Form snw - Thank You Letter snw - Antibiotic Education snw - Prescription Opioid Use snw - Patient Portal Instructions snw - Leadership Thank You Letter snw Prescriptions: - Zyrtec 10 mg Oral Tablet - take 1 tablet ORAL route once daily As needed; 20 tablet; Refills: 0, Product snw Selection Permitted - orphenadrine citrate 100 mg Oral Tablet Sustained Release - take 1 tablet ORAL route 2 times per day As needed; 20 tablet; Refills: 0, snw Product Selection Permitted - Pepcid 20 mg Oral Tablet - take 1 tablet ORAL route once daily; 20 tablet; Refills: 0, Product Selection snw Permitted Signatures: Dispatcher [employer] EDMS Harriett Moser FNP-C [employer] AGENT-Csnw Agnieszka Darden RN RN Rosa Nunez RN RN Juliet Connolly RN RN ap3 Corrections: (The following items were deleted from the chart) 14:33 14:32 Home Meds: None; hb hb
[2023-04-13 18:06] VITALS: TEMP 99; O2SAT 99
[2023-04-13 18:16] VITALS: BP 141/65
== END ==
LOC: ER 13:42
DX: J06.9 Acute upper respiratory infection, unspecified (principal); G47.00 Insomnia, unspecified; Z28.310 Unvaccinated for COVID-19
CPT/HCPCS: 96361; 85025; 36415; 83735; 84443; 80053; 96360; 99284; J7030 ×2